=== PATIENT | female | born 1945 | race Caucasian/White ===

== ENCOUNTER 2021-01-05 22:32 | Emergency (ER) | payer MEDICARE, SELFPAY ==
[2021-01-05 22:54] VITALS: BP 90/52; PULSE 72; RESP 18; TEMP 36.6; O2SAT 91; BMI 24.1
--- NOTE | 2021-01-05 23:17 | ED_ITS ---
HPI - Fall General: Chief Complaint: Fall Stated Complaint: Fall Head Injury Time Seen by Provider: 01/05/21 23:17 History of Present Illness: HPI Narrative: Ms. Muller is a 75-year-old lady without significant past medical history presents emergency department due to fall with head injury. She typically lives in [place] and is currently in town visiting family. She was drinking vodka tonight and had a fall under unclear circumstances where she struck her head. She denies frequent history of alcohol use but is visibly intoxicated. Reliability of history is otherwise somewhat limited. Denies changes in health. Currently has mild to moderate facial discomfort worse with palpation and aching. Denies loss of consciousness. Denies other injury. Review of Systems General: Reports: 10 or more systems reviewed and unremarkable except in HPI and below Physical Exam Narrative: EXAM NARRATIVE: GENERAL/CONSTITUTIONAL - well-appearing. No acute distress. Appears clinically intoxicated. Eyes - PERRL, no conjunctival injection ENMT - Atraumatic external nose and ears. V-shaped laceration mid forehead with exposed underlying muscle fascial layer. Bleeding controlled. Moist mucous membranes. Dentition and jaw alignment appears preserved. No colvin signs or raccoon eyes. NECK - supple. trachea midline CARDIOVASCULAR - regular rate and rhythm. RESPIRATORY -clear to auscultation bilaterally. ABDOMEN/GI - Nontender/Nondistended. No tenderness to percussion or evidence of peritonitis MSK - Extremities without obvious deformity or tenderness to palpation SKIN - Warm, Dry NEURO - alert and appropriately oriented. Moves all extremities equally. Patient appears clinically intoxicated consistent with reported alcohol use. Procedures Laceration Laceration 1: Site: face (mid forhead V shaped with point towards hair line) Size (cm): 6 Description: flap Local Anesthetic: lidocaine 1% and with epi Amount of anesthesia used (mL): 8 Pre-repair: wound explored, irrigated extensively and deep structures intact Skin layer closed with: nylon Size (cm): 5-0 Number of sutures: 9 Technique: simple, interrupted Subcutaneous layer closed with: vicryl Size: 5-0 Number of sutures: 2 Technique: simple, interrupted Course ED course: - Patient was seen and evaluated by me at bedside -Vital signs obtained - Initial evaluation notable for laceration as noted, clinically intoxicated. -Given degree of intoxication imaging warranted. - Imaging notable for no acute internal traumatic injury. -Laceration irrigated and repaired. Patient tolerated procedure well. The underlying muscle layer appears intact however did appear that there is mild limitation due to disruption of superficial muscle layer in forehead wrinkling, no obvious other nerve damage. - Upon serial reexamination after treatment the patient was improved - Based on patient history, evaluation, labs, and imaging as interpreted the most likely cause of the patient's condition is fall with laceration. -Patient is accompanied by friend and has safe discharge plan and will be watched closely - The results of ED evaluation were discussed with the patient including prescriptions and/or symptomatic cares (if applicable) including appropriate and responsible use, followup plan, and return precautions. The patient verbalized understanding and felt safe for discharge. - Patient discharged in satisfactory condition. Vital Signs: Vital signs: Vital Signs Temperature 98 F 01/05/21 22:54 Pulse Rate 71 01/06/21 02:33 Respiratory Rate 18 01/06/21 02:33 Blood Pressure 101/70 01/06/21 02:33 Pulse Oximetry 95 01/06/21 02:33 MDM - Fall Medical Records: Attestation: I reviewed the patient's medical records. Lab Data: Attestation: I reviewed the patient's lab results. Labs: Lab Results 01/05/21 23:42 POC Glucose 149 mg/dL H mg/dL (70-110) Discharge Plan Discharge Patient Disposition: Home Clinical Impression: Alcohol intoxication, Fall, Forehead laceration Condition: Stable Discharge Orders: Discharge ED (Routine); Ordered 01/06/21 Ordered By: Dalton Davis Discharge Diet: Usual diet Discharge Activity: Resume usual activity Patient Instructions: Care For Your Stitches (ED), Head Injury (ED), Alcohol Intoxication (ED), Head Laceration (ED), Opioid Safety Activity Restrictions/Additional Instructions: Thank you for visiting the emergency department. You were seen and evaluated for fall with head laceration. This was repaired at bedside. You need sutures removed in 7 days. Please follow-up with your primary care provider. Please follow all care instructions. Please return to the emergency department for anything that you are concerned about and feel needs emergency department evaluation. Coding Level of Care Code ED Sign Language Instructor for Kiki Heller
--- NOTE | 2021-01-05 23:32 | CTR_ITS ---
PROCEDURE INFORMATION: Exam: CT Cervical Spine Without Contrast Exam date and time: 01/05/2021 11:32 PM Age: 75 years old Clinical indication: Injury or trauma; Fall; Blunt trauma; Patient HX: Patient fell at home head first onto carpeted concrete floor. Large lac to forehead. ETOH on board. ; Additional info: Fall, AMS TECHNIQUE: Imaging protocol: Computed tomography images of the cervical spine without contrast. Radiation optimization: All CT scans at this facility use at least one of these dose optimization techniques: automated exposure control; mA and/or kV adjustment per patient size (includes targeted exams where dose is matched to clinical indication); or iterative reconstruction. COMPARISON: CT head wo con* [id number] 01/05/2021 11:45 PM RADIATION DOSE METRICS: Total DLP (mGy-cm): 1061.19 FINDINGS: Vertebrae: There are mild degenerative changes present. Normal alignment. No acute fractures. Soft tissues: Unremarkable. Lungs: Lung apices are normal. CT/CT cervical spin wo con* [id number] IMPRESSION: No acute injury. Radiation Dose CTDIVOL = (mGy): DLP = 1061.19 (mGy-cm)
--- NOTE | 2021-01-05 23:32 | CTR_ITS ---
PROCEDURE INFORMATION: Exam: CT Chest Without Contrast; Diagnostic Exam date and time: 01/05/2021 11:32 PM Age: 75 years old Clinical indication: Injury or trauma; Fall; Generalized; Blunt trauma (contusions or hematomas); Prior surgery; Surgery type: Gb; Patient HX: Patient fell at home onto carpeted concrete floor. ETOH on board. Unable to get history. ; Additional info: Fall, AMS TECHNIQUE: Imaging protocol: Diagnostic computed tomography of the chest without contrast. Radiation optimization: All CT scans at this facility use at least one of these dose optimization techniques: automated exposure control; mA and/or kV adjustment per patient size (includes targeted exams where dose is matched to clinical indication); or iterative reconstruction. COMPARISON: CT cervical spin wo con* [id number] 01/05/2021 11:50 PM RADIATION DOSE METRICS: Total DLP (mGy-cm): 2475.98 FINDINGS: Lungs: Atelectasis at the lung bases. The lungs are otherwise clear. Pleural spaces: Unremarkable. No pneumothorax. No pleural effusion. Heart: Unremarkable. No cardiomegaly. No pericardial effusion. Aorta: Unremarkable. No aortic aneurysm. Lymph nodes: Unremarkable. No enlarged lymph nodes. Diaphragm: There is a small hiatal hernia. Bones/joints: Unremarkable. No acute fracture. Soft tissues: Unremarkable. IMPRESSION: No acute injury. Small hiatal hernia. PROCEDURE INFORMATION: Exam: CT Abdomen And Pelvis Without Contrast Exam date and time: 01/05/2021 11:32 PM Age: 75 years old Clinical indication: Injury or trauma; Fall; Generalized; Blunt trauma (contusions or hematomas); Prior surgery; Surgery type: Gb; Patient HX: Patient fell at home onto carpeted concrete floor. ETOH on board. Unable to get history. ; Additional info: Fall, AMS TECHNIQUE: Imaging protocol: Computed tomography of the abdomen and pelvis without contrast. Radiation optimization: All CT scans at this facility use at least one of these dose optimization techniques: automated exposure control; mA and/or kV adjustment per patient size (includes targeted exams where dose is matched to clinical indication); or iterative reconstruction. COMPARISON: CT cervical spin wo con* [id number] 01/05/2021 11:50 PM RADIATION DOSE METRICS: Total DLP (mGy-cm): 2475.98 FINDINGS: Liver: Normal. No mass. Gallbladder and bile ducts: The patient has had a cholecystectomy. Pancreas: Normal. No ductal dilation. Spleen: Normal. No splenomegaly. Adrenal glands: Normal. No mass. Kidneys and ureters: Normal. No hydronephrosis. Stomach and bowel: Scattered diverticula without evidence of acute diverticulitis or perforation. Appendix: No evidence of appendicitis. Intraperitoneal space: Unremarkable. No free air. No significant fluid collection. Vasculature: Unremarkable. No abdominal aortic aneurysm. Lymph nodes: Unremarkable. No enlarged lymph nodes. Urinary bladder: Unremarkable as visualized. Reproductive: The patient has had a hysterectomy. Bones/joints: There is a left convex scoliosis centered at L3 with moderate to severe degenerative changes throughout the lumbar spine. Soft tissues: Unremarkable. CT/CT chest abd pel wo con IMPRESSION: No acute injuries. Diverticulosis without acute diverticulitis. Surgical changes as described above. Radiation Dose CTDIVOL = (mGy): DLP = 2475.98~2475.98 (mGy-cm)
--- NOTE | 2021-01-05 23:32 | CTR_ITS ---
PROCEDURE INFORMATION: Exam: CT Head Without Contrast Exam date and time: 01/05/2021 11:32 PM Age: 75 years old Clinical indication: Injury or trauma; Fall; Blunt trauma (contusions or hematomas); Patient HX: Patient fell at home head first onto carpeted concrete floor. Large lac to forehead. ETOH on board. ; Additional info: Fall, AMS TECHNIQUE: Imaging protocol: Computed tomography of the head without contrast. Radiation optimization: All CT scans at this facility use at least one of these dose optimization techniques: automated exposure control; mA and/or kV adjustment per patient size (includes targeted exams where dose is matched to clinical indication); or iterative reconstruction. COMPARISON: No relevant prior studies available. RADIATION DOSE METRICS: Total DLP (mGy-cm): 1329.15 FINDINGS: Brain: Age appropriate atrophy and small vessel ischemic change. No evidence of intracranial hemorrhage, mass effect, midline shift or extra-axial fluid collections. Midline structures are normal. Gonzales-white matter differentiation is normal. Cerebral ventricles: No ventriculomegaly. Paranasal sinuses: Visualized sinuses are unremarkable. No fluid levels. Mastoid air cells: Visualized mastoid air cells are well aerated. Vasculature: Carotid atherosclerotic calcification. Bones/joints: Unremarkable. No acute fracture. Soft tissues: There is a frontal scalp laceration. CT/CT head wo con* [id number] IMPRESSION: No acute intracranial injury. Radiation Dose CTDIVOL = (mGy): DLP = 1329.15 (mGy-cm)
[2021-01-05 23:47] LABS: Glucose Point of Care 149 mg/dL (70-110)
[2021-01-06] MEDS: tetanus-dipt-pertussis 0.5 mL SDV IM (00:31)
[2021-01-06] MEDS: acetaminophen 500 mg Tablet 1000 MG PO (00:41)
[2021-01-06] MEDS: ketorolac 30 mg/mL INJ 15 MG IVP (00:41)
[2021-01-06 02:33] VITALS: BP 101/70; PULSE 71; RESP 18; O2SAT 95
== END 2021-01-06 02:30 | disposition home or self-care (01) ==
PROVIDERS: Emergency Provider Emergency Medicine
DX: S01.81XA Laceration without foreign body of other part of head, initial encounter (principal); F10.129 Alcohol abuse with intoxication, unspecified; W19.XXXA Unspecified fall, initial encounter; Z23 Encounter for immunization
CPT/HCPCS: 12014; 36416; 70450; 71250; 72125; 74176; 82962; 90471; 90715; 99283; 99284; J1885